=== PATIENT | female | born 1990 | race Caucasian/White ===

== ENCOUNTER 2017-03-28 06:33 | Emergency (ER) | payer OTHER | END 2017-03-28 07:28 | disposition home or self-care (01) | LOC: FER 06:33 | DX: J02.9 Acute pharyngitis, unspecified (principal); J45.909 Unspecified asthma, uncomplicated; E66.01 Morbid (severe) obesity due to excess calories; Z87.42 Personal history of other diseases of the female genital tract; Z88.0 Allergy status to penicillin; Z88.1 Allergy status to other antibiotic agents; Z88.2 Allergy status to sulfonamides; Z88.5 Allergy status to narcotic agent; Z91.041 Radiographic dye allergy status | CPT/HCPCS: 87450; 99283 ==

== ENCOUNTER 2017-05-08 09:29 | Emergency (ER) | payer OTHER | END 2017-05-08 10:42 | disposition home or self-care (01) | LOC: FER 09:29 | DX: G43.909 Migraine, unspecified, not intractable, without status migrainosus (principal); F17.210 Nicotine dependence, cigarettes, uncomplicated; Z88.1 Allergy status to other antibiotic agents; Z88.0 Allergy status to penicillin; Z88.2 Allergy status to sulfonamides; Z88.5 Allergy status to narcotic agent; Z91.041 Radiographic dye allergy status | CPT/HCPCS: J1885; J2765 ==

== ENCOUNTER 2020-12-09 13:43 | Emergency (ER) | payer OTHER ==
[~2020-12-09 13:43] MED LIST: ADDERALL XR 1515 MG PO; BENTYL10 MG PO; EPIVIR150 MG PO; MEDROL 4MG DOSEP4 MG PO; PREDNISONE 20MG20 MG PO; VYVANSE50 MG PO; WELLBUTRIN XL150 MG PO; ZITHROMAX500 MG PO; ZOFRAN4 MG PO
[2020-12-09 15:58] LABS: BASOPHIL 0.3 % (0-2); EOSINOPHIL 1.2 % (0-5); HCT 48.4 % (37.0-47.0); HGB 15.9 g/dl (12.5-16.0); LYMPHOCYTE 31.7 % (15-48); MCH 28.2 pg (25.0-31.0); MCHC 32.9 g/dL (32.0-36.0); MONOCYTE 5.8 % (0-12); MPV 10.1 fL (6.0-9.5); NEUTROPHIL 60.5 % (41-80); NRBC 0; PLT 214 K/uL (150-400); RBC 5.63 M/uL (4.20-5.40); RDW 13.2 % (11.5-14.0); WBC 6.5 K/uL (4.0-10.5)
[2020-12-09 16:04] LABS: INR 1.06 (0.9-1.2); PROTHROMBIN TIME 13.1 SECONDS (11.4-13.6); PTT 29.6 SECONDS (22.2-34.7)
[2020-12-09 16:05] LABS: D-DIMER < 0.27 ug/mLFEU (0.00-0.41)
[2020-12-09 16:40] LABS: ALBUMIN 3.8 g/dL (3.4-5.0); BILIRUBIN - TOTAL 0.9 mg/dL (0.2-1.0); BUN/CREAT RATIO (CALC) 15.1 RATIO; CREATININE 0.73 mg/dL (0.51-0.95); GLOBULIN (CALCULATION) 4.2 g/dL; MAGNESIUM 1.9 mg/dL (1.8-2.4); POTASSIUM 3.6 mmol/L (3.5-5.1)
[2020-12-09] MEDS ORDERED: MEDROL 4MG DOSEP4 MG PO (18:29)
[2020-12-09] MEDS ORDERED: VENTOLIN HFA18 GM INH (18:29)
[2020-12-09] MEDS ORDERED: TESSALON PERLE100 M1 PO (18:29)
== END 2020-12-09 18:50 | disposition home or self-care (01) ==
LOC: FER 13:43
PROVIDERS: Emergency Medicine
DX: U07.1 COVID-19 (principal); F17.200 Nicotine dependence, unspecified, uncomplicated; Z88.0 Allergy status to penicillin; Z88.2 Allergy status to sulfonamides; Z88.5 Allergy status to narcotic agent; Z88.1 Allergy status to other antibiotic agents; Z91.041 Radiographic dye allergy status
CPT/HCPCS: 36415; 71250; 80053; 82533; 83735; 84145; 84484; 85025; 85379; 85610; 85730; 93005; J1170; J2405

== ENCOUNTER 2021-01-18 10:04 | Emergency (ER) | payer OTHER ==
[~2021-01-18 10:04] MED LIST changes: +TESSALON PERLE100 M1 PO; +VENTOLIN HFA18 GM INH
== END 2021-01-18 11:57 | disposition home or self-care (01) ==
LOC: FER 10:04
DX: G44.209 Tension-type headache, unspecified, not intractable (principal); R11.0 Nausea; Z88.0 Allergy status to penicillin; Z88.2 Allergy status to sulfonamides; Z88.5 Allergy status to narcotic agent; Z88.1 Allergy status to other antibiotic agents; Z91.041 Radiographic dye allergy status; Z88.8 Allergy status to other drugs, medicaments and biological substances
CPT/HCPCS: 96372; 99283; J0780; J1885

== ENCOUNTER 2021-10-02 20:07 | Emergency (ER) | payer OTHER ==
[2021-10-02 22:11] LABS: BILIRUBIN NEGATIVE (NEGATIVE); BLOOD NEGATIVE Ery/uL (NEGATIVE); CLARITY CLEAR (CLEAR); COLOR YELLOW (YELLOW); GLUCOSE (U) NORMAL (NORMAL); LEUKOCYTES TRACE Leu/uL (NEGATIVE); NITRITE NEGATIVE (NEGATIVE); PROTEIN TRACE (LOW) mg/dL (NEGATIVE); SPECIFIC GRAVITY >=1.030 (1.001-1.030); UROBILINOGEN 0.2 mg/dL (0.2-1.0)
[2021-10-02 22:19] LABS: MCH 28.3 pg (25.0-31.0); MCHC 31.7 g/dL (32.0-36.0); MCV 89.3 fL (78.0-100.0); RBC 4.59 M/uL (4.20-5.40); RDW 13.8 % (11.5-14.0); WBC 8.6 K/uL (4.0-10.5)
[2021-10-02 22:19] LABS: BACTERIA 2+; MUCOUS TRACE; URINARY RBC RARE
[2021-10-02 22:36] LABS: ALBUMIN 3.5 g/dL (3.4-5.0); BILIRUBIN - TOTAL 0.8 mg/dL (0.2-1.0); BUN/CREAT RATIO (CALC) 13.6 RATIO; CREATININE 0.66 mg/dL (0.51-0.95); GLOBULIN (CALCULATION) 3.7 g/dL; POTASSIUM 3.6 mmol/L (3.5-5.1); TOTAL PROTEIN 7.2 g/dL (6.4-8.2)
== END 2021-10-02 23:39 | disposition home or self-care (01) ==
LOC: FER 20:07
PROVIDERS: Emergency Medicine
DX: M25.532 Pain in left wrist (principal); F17.210 Nicotine dependence, cigarettes, uncomplicated; J45.909 Unspecified asthma, uncomplicated; Z88.1 Allergy status to other antibiotic agents; Z91.041 Radiographic dye allergy status; Z88.0 Allergy status to penicillin; Z88.2 Allergy status to sulfonamides; Z88.5 Allergy status to narcotic agent; V40.5XXA Car driver injured in collision with pedestrian or animal in traffic accident, initial encounter; Y92.410 Unspecified street and highway as the place of occurrence of the external cause
CPT/HCPCS: 36415; 71045; 73090; 73110; 80053; 81001; 83690